=== PATIENT | female | born 1990 | race Caucasian/White ===

== ENCOUNTER 2020-01-23 12:46 | Emergency (ER) | payer BC ==
[2020-01-23] MEDS ORDERED: Pantoprazole 40 MG Tab.CR PO ONE (13:34)
--- NOTE | 2020-01-23 13:35 | EDM.PDOC ---
ED HPI GENERAL MEDICAL PROBLEM - General Chief Complaint: Abdominal Pain Stated Complaint: ABD PAIN Time Seen by Provider: 01/23/20 13:35 Source of Information: Reports: Patient History Limitations: Reports: No Limitations - History of Present Illness INITIAL COMMENTS - FREE TEXT/NARRATIVE: pt arrived with severe epigastric pain which started during the nite. She has not been vomiting. She has not had alot of symptoms until now. She describes her self as always having stomach problems. Onset: Other ( started during the nite. ) Duration: Hour(s): Location: Reports: Abdomen Associated Symptoms: Reports: Other ( pt has nausea and epigastric pain. ) Abdominal Pain Score (Numeric/FACES): 7 - Related Data Allergies Allergy/AdvReac Type Severity Reaction Status Date / Time Sulfa (Sulfonamide Allergy Cannot Verified 01/23/20 13:18 Antibiotics) Remember Home Meds: Home Meds Norgestimate-Ethinyl Estradiol [Norg-Ee 0.18-0.215-0.25/0.025] 1 tab PO DAILY [History] Past Medical History Gastrointestinal History: Reports: Other (See Below) Other Gastrointestinal History: abd pain Social & Family History - Tobacco Use Smoking Status *Q: Never Smoker - Caffeine Use Caffeine Use: Reports: Coffee - Recreational Drug Use Recreational Drug Use: No ED ROS GENERAL - Review of Systems Review Of Systems: See Below Constitutional: Reports: No Symptoms HEENT: Reports: No Symptoms Respiratory: Reports: No Symptoms Cardiovascular: Reports: No Symptoms Endocrine: Reports: No Symptoms GI/Abdominal: Reports: Abdominal Pain, Other (pt is having severe epigastric pain) : Reports: No Symptoms Musculoskeletal: Reports: No Symptoms Skin: Reports: No Symptoms Neurological: Reports: No Symptoms Psychiatric: Reports: No Symptoms ED EXAM, GI/ABD - Physical Exam Exam: See Below Text/Narrative:: pt arrived having severe epigastric pain which got better with eating. Exam Limited By: No Limitations General Appearance: Alert, Anxious, Moderate Distress Ears: Normal TMs Nose: Normal Inspection Throat/Mouth: Normal Inspection Head: Atraumatic Neck: Normal Inspection Respiratory/Chest: No Respiratory Distress Cardiovascular: Regular Rate, Rhythm GI/Abdominal Exam: Other ( tender in the epigastric area. ) (Female) Exam: Deferred Rectal (Female) Exam: Deferred Back Exam: Normal Inspection Extremities: Normal Inspection Neurological: Alert, Oriented, Normal Cognition Course - Vital Signs Last Recorded V/S: Last Vital Signs Temp 35.8 C L 01/23/20 13:15 Pulse 66 01/23/20 13:15 Resp 18 01/23/20 13:15 BP 139/81 01/23/20 13:15 Pulse Ox - Orders/Labs/Meds Labs: Laboratory Tests 01/23/20 01/23/20 01/23/20 Range/Units 13:25 13:25 13:38 WBC 6.1 (4.5-11.0) K/uL RBC 4.40 (3.30-5.50) M/uL Hgb 13.5 (12.0-15.0) g/dL Hct 40.1 (36.0-48.0) % MCV 91 (80-98) fL MCH 31 (27-31) pg MCHC 34 (32-36) % Plt Count 187 (150-400) K/uL Neut % (Auto) 55 (36-66) % Lymph % (Auto) 29 (24-44) % [place] % (Auto) 6 (2-6) % Eos % (Auto) 9 H (2-4) % Baso % (Auto) 1 (0-1) % Sodium 142 (140-148) mmol/L Potassium 3.6 (3.6-5.2) mmol/L Chloride 105 (100-108) mmol/L Carbon Dioxide 26 (21-32) mmol/L Anion Gap 10.9 (5.0-14.0) mmol/L BUN 13 (7-18) mg/dL Creatinine 0.7 (0.6-1.0) mg/dL Est Cr Clr Drug Dosing 115.32 mL/min Estimated GFR (MDRD) > 60 (>60) Glucose 85 (74-106) mg/dL Calcium 8.5 (8.5-10.1) mg/dL Total Bilirubin 0.3 (0.2-1.0) mg/dL AST 15 (15-37) U/L ALT 20 (12-78) U/L Alkaline Phosphatase 45 L (46-116) U/L C-Reactive Protein 0.16 (0.0-0.3) mg/dL Total Protein 7.5 (6.4-8.2) g/dL Albumin 3.9 (3.4-5.0) g/dL Globulin 3.6 H (2.3-3.5) g/dL Albumin/Globulin Ratio 1.1 L (1.2-2.2) Lipase (73-393) U/L Urine Color Yellow (YELLOW) Urine Appearance Clear (CLEAR) Urine pH 7.5 (5.0-8.0) Ur Specific [place] 1.015 (1.008-1.030) Urine Protein Negative (NEGATIVE) mg/dL Urine Glucose (UA) Negative (NEGATIVE) mg/dL Urine Ketones Negative (NEGATIVE) mg/dL Urine Occult Blood Moderate H (NEGATIVE) Urine Nitrite Negative (NEGATIVE) Urine Bilirubin Negative (NEGATIVE) Urine Urobilinogen 0.2 (0.2-1.0) EU/dL Ur Leukocyte Esterase Negative (NEGATIVE) Urine RBC 5-10 H (0-5) Urine WBC Not seen (0-5) Ur Epithelial Cells Not seen Amorphous Sediment Not seen Urine Bacteria Not seen Urine Mucus Not seen 01/23/20 Range/Units 13:38 WBC (4.5-11.0) K/uL RBC (3.30-5.50) M/uL Hgb (12.0-15.0) g/dL Hct (36.0-48.0) % MCV (80-98) fL MCH (27-31) pg MCHC (32-36) % Plt Count (150-400) K/uL Neut % (Auto) (36-66) % Lymph % (Auto) (24-44) % [place] % (Auto) (2-6) % Eos % (Auto) (2-4) % Baso % (Auto) (0-1) % Sodium (140-148) mmol/L Potassium (3.6-5.2) mmol/L Chloride (100-108) mmol/L Carbon Dioxide (21-32) mmol/L Anion Gap (5.0-14.0) mmol/L BUN (7-18) mg/dL Creatinine (0.6-1.0) mg/dL Est Cr Clr Drug Dosing mL/min Estimated GFR (MDRD) (>60) Glucose (74-106) mg/dL Calcium (8.5-10.1) mg/dL Total Bilirubin (0.2-1.0) mg/dL AST (15-37) U/L ALT (12-78) U/L Alkaline Phosphatase (46-116) U/L C-Reactive Protein (0.0-0.3) mg/dL Total Protein (6.4-8.2) g/dL Albumin (3.4-5.0) g/dL Globulin (2.3-3.5) g/dL Albumin/Globulin Ratio (1.2-2.2) Lipase 220 (73-393) U/L Urine Color (YELLOW) Urine Appearance (CLEAR) Urine pH (5.0-8.0) Ur Specific [place] (1.008-1.030) Urine Protein (NEGATIVE) mg/dL Urine Glucose (UA) (NEGATIVE) mg/dL Urine Ketones (NEGATIVE) mg/dL Urine Occult Blood (NEGATIVE) Urine Nitrite (NEGATIVE) Urine Bilirubin (NEGATIVE) Urine Urobilinogen (0.2-1.0) EU/dL Ur Leukocyte Esterase (NEGATIVE) Urine RBC (0-5) Urine WBC (0-5) Ur Epithelial Cells Amorphous Sediment Urine Bacteria Urine Mucus Meds: Medications Discontinued Medications Generic Name Dose Route Start Last Admin Trade Name [id number] PRN Reason Stop Dose Admin Al Hydroxide/Mg Hydroxide 30 ml 01/23/20 16:10 Mag-Al Plus PO 01/23/20 16:11 ONETIME ONE Al Hydroxide/Mg Hydroxide 15 0 ml 01/23/20 15:18 01/23/20 15:21 ml/ Lidocaine HCl 15 ml PO 01/23/20 15:19 45 ml ONETIME ONE Administration Famotidine 20 mg 01/23/20 16:10 Pepcid PO 01/23/20 16:11 ONETIME ONE Pantoprazole Sodium 40 mg 01/23/20 13:34 01/23/20 13:40 Protonix PO 01/23/20 13:35 40 mg DAILY ONE Administration - Re-Assessments/Exams Free Text/Narrative Re-Assessment/Exam: 01/24/20 11:43 pt was given protonix 40 mg po and a Gi cocktail. She did get relief with the Gi cocktail but that was brief. She was given carafate 1 gm. She had a Us on her GB and this was neg. It was felt that she needed to return for a gastro. Departure - Departure Time of Disposition: 16:11 Disposition: Home, Self-Care 01 Condition: Fair Clinical Impression: Epigastric pain, Gastrointestinal irritation - Discharge Information Instructions: Abdominal Pain, Adult, [id number] Referrals: PCP,None [Primary Care Provider] - Forms: ED Department Discharge Care Plan Goals: rtc to be gastroscoped. pepcid 20 mg bid, norco 5/325 q6h prn for pain # use maalox liberally to keep stomach coated. Sepsis Event Note - Evaluation Sepsis Screening Result: No Definite Risk - Focused Exam Date Exam was Performed: 01/24/20 Time Exam was Performed: 11:41
[2020-01-23] MEDS ORDERED: Alum Hydrox/Mag Hydrox/Simeth 15 ML, Lidocaine 2% 15 ML PO ONE ×2 (15:18)
--- NOTE | 2020-01-23 15:27 | US ---
Abdomen Ltd CLINICAL HISTORY: Right upper quadrant pain COMPARISON: None. TECHNIQUE: Real-time images were obtained through the right upper quadrant. FINDINGS: The liver is free of mass or biliary dilatation. There is a normal hepatic echogenicity. The gallbladder is contracted. The common bile duct measures 3 mm. The pancreas is free of mass. The right kidney has a normal appearance. The IVC is normal. IMPRESSION: Contracted gallbladder is nonspecific No stones, biliary dilatation or abnormal fluid collections
[2020-01-23] MEDS ORDERED: Aluminum Hydroxide/Magnesium Hydroxide/Simethicone Susp 30 ML Cup PO ONE (16:10)
[2020-01-23] MEDS ORDERED: Famotidine 20 MG Tab PO ONE (16:10)
== END 2020-01-23 16:38 | disposition home or self-care (01) ==
LOC: JP.ED 12:46
DX: K31.89 Other diseases of stomach and duodenum (principal); Z88.2 Allergy status to sulfonamides
CPT/HCPCS: 36415; 76705; 80053; 81001; 83690; 85025; 86140; 99284; A9270

== ENCOUNTER 2020-01-24 09:40 | Day surgery (SDC) | payer BC ==
[2020-01-24] MEDS ORDERED: Dextrose 5%-Lactated Ringers 1,000 ML IV SCH (10:30)
[2020-01-24] MEDS ORDERED: Glycopyrrolate 0.2 MG/ML 2 ML SDV IVPUSH ONE (11:00)
[2020-01-24] MEDS ORDERED: fentaNYL 100 MCG/2 ML SDV ONE (11:23)
[2020-01-24] MEDS ORDERED: Midazolam 1 MG/ML 2 ML SDV ONE (11:23)
[2020-01-24] MEDS ORDERED: Propofol 200 MG/20 ML SDV ONE (11:24)
[2020-01-24] MEDS ORDERED: Pantoprazole 40 MG Vial IVPUSH ONE (12:14)
--- NOTE | 2020-02-03 13:51 | OR ---
DATE OF PROCEDURE: 01/24/2020 SURGEON: Jeromy Lagunas MD PREOPERATIVE DIAGNOSIS: Epigastric pain. POSTOPERATIVE DIAGNOSIS: Epigastric pain associated with marked erosive gastritis. OPERATIVE PROCEDURE: Esophagogastroduodenoscopy with antral biopsies for CLOtest. ANESTHESIA: IV sedation. INDICATION FOR PROCEDURE: A 29-year-old female who is referred to the emergency room for upper endoscopy for management of severe epigastric pain. Plan is proceed with upper GI endoscopy with biopsies as indicated. Potential risks including bleeding and perforation were discussed, and the patient wishes to proceed. DETAILS OF PROCEDURE: The patient was taken to the operating room and placed in a left lateral decubitus position. IV sedation was administered, after which the upper GI endoscope was passed orally through the length of the esophagus into the stomach with retroflexion view of the fundus, and thereafter, through the pyloric channel and into the proximal duodenum. Findings included normal hypopharynx, larynx, upper esophageal sphincter, and esophageal body. The EG junction showed no significant abnormalities. Within the stomach, the distal body and antrum were involved in quite significant erosive gastritis. The areas of erosion were at this point covered with fibrinous exudate with no bleeding identified. The pyloric channel and the duodenum to the junction of the 3rd and 4th portions were otherwise unremarkable. At this point, biopsies were obtained from the antrum and sent for CLOtest for H pylori. No bleeding from the biopsy sites was seen, and the procedure was then concluded. The patient was given a prescription for Pepcid in the emergency room. She will be instructed to finish that off, could also be given Protonix 40 mg IV in the recovery room and given a 30-day supply of Protonix orally. We will see the patient back on 02/05/2020 for followup. Jeromy Lagunas MD /[id number]
== END 2020-01-24 13:25 | disposition home or self-care (01) ==
LOC: JP.SDS 09:40
PROVIDERS: ATTEND Surgery
DX: K29.70 Gastritis, unspecified, without bleeding (principal); K25.9 Gastric ulcer, unspecified as acute or chronic, without hemorrhage or perforation; Z88.2 Allergy status to sulfonamides
CPT/HCPCS: 43239; 81025; 87081; C9113; J2250; J2704; J3010; J3490; J7121